=== PATIENT | male | born 1990 | race Caucasian/White ===

== ENCOUNTER 2016-06-14 03:07 | Emergency (ER) | payer MEDICARE ==
[~2016-06-14] VITALS: Ht 172.7 cm; Wt 81.6 kg
[~2016-06-14 03:07] MED LIST: ALBUTEROL0.09 MG/A2 IH; ALBUTEROL0.09 MG/A2 INH; ANAPROX DS550 MG PO; ANTIBIOTIC O500 U/GM TP; AUGMENTIN 875875 MG PO; AVELOX400 MG PO; BACTRIM DS 8001 TA1 PO; BENADRYL ALLERG25 M5 PO; BIAXIN250 MG/51 PO; BIPAP; CEPHALEXIN500 M1 PO; CIPROFLOXACIN500 MG PO; CLARITIN10 MG PO; CLARITIN5 MG/5 ML PO; COMPAZINE10 MG PO; CORDROL20 MG PO; CYCLOBENZAPRINE5 M3 PO; DAYPRO600 M1; DAYPRO600 M1 PO; DOXYCYCLINE MO100 MG PO; FLAGYL500 MG PO; FLEXERIL10 MG PO; FLEXERIL5 MG PO; HYDROCODONE BIT1 T11 PO; IBU800 MG PO; K-TAB10 MEQ PO; KEFLEX500 M1 PO; LIDEX0.05% T; MEDROL DOSEPAK4 MG PO; MOTRIN600 MG PO; MOTRIN800 MG PO; Motrin,Rufen800 MG PO; NAPROSYN500 MG PO; NKHM; PHENERGAN25 M1 PO; PREDNICOT20 MG PO; PREDNISONE10 MG PO; PRELONE15 MG/5 ML PO; PREVACID SOLUTA30 MG PO; ROBAXIN750 MG PO; SUDAFED60 M1 PO; TRAMADOL HCL50 MG PO; ULTRAM50 MG; VIBRAMYCIN100 MG PO; VICODIN 5-3001 EACH PO; VICODIN 5/500 505 MG PO; VOLTAREN75 MG PO; ZANTAC 150150 MG PO; ZITHROMAX Z PA250 MG PO; ZOFRAN4 MG PO; ZOFRAN4 MG/5 ML PO; Zithromax200 MG/5 M PO; [UNRECOGNIZED DRUG - SUPPLY]
[2016-06-14 03:16] VITALS: BP 147/84
[2016-06-14 04:03] LABS: BASO # 0.1 10*3/uL (0.0-0.1); BASO % 0.6 % (0.0-1.0); EOS # 0.3 10*3/uL (0.0-0.4); EOS % 3.6 % (1.0-4.0); HEMATOCRIT 43.2 % (42.0-52.0); HEMOGLOBIN 14.7 g/dl (14.0-18.0); LYMPH # 2.9 10*3/uL (1.3-4.4); LYMPH % 32.9 % (27.0-41.0); MEAN CELL VOLUME 81.4 fl (80.0-94.0); MEAN CORPUSCULAR HGB 27.7 pg (27.0-31.0); MEAN PLATELET VOLUME 9.3 fl (9.6-12.3); MONO % 11.3 % (3.0-9.0); NEUT # 4.6 10*3/uL (2.3-7.9); NEUT % 51.3 % (47.0-73.0); PLATELET COUNT AUTOMATED 232 10*3/uL (130-400); RED BLOOD COUNT 5.31 10*6/uL (4.50-5.90); RED CELL DISTRI WIDTH 13.1 % (0-14.5); WHITE BLOOD COUNT 8.9 10*3/uL (4.8-10.8)
[2016-06-14 04:21] LABS: BILIRUBIN 1+ (NEGATIVE); BLOOD NEGATIVE (NEGATIVE); CLARITY SL CLOUDY (CLEAR); COLOR YELLOW (YELLOW); GLUCOSE NEGATIVE (NEGATIVE); KETONE TRACE (NEGATIVE); LEUKO ESTERASE NEGATIVE (NEGATIVE); NITRITE NEGATIVE (NEGATIVE); PH 5.5 (5.0-9.0); PROTEIN TRACE (NEGATIVE); SPECIFIC GRAVITY >= 1.030 (1.005-1.030)
[2016-06-14 04:21] LABS: BUN 10 mg/dl (7-24); C-REACTIVE PROTEIN 0.82 MG/DL (0-0.3); CARBON DIOXIDE 25 mmol/L (21-32); CHLORIDE 107 mmol/L (98-107); EST GLOM FILT AFRICAN AMERICAN > 60 ml/min; GLUCOSE 105 mg/dL (65-99); POTASSIUM 3.7 mmol/L (3.5-5.1); SODIUM 143 mmol/L (136-145)
[2016-06-14 04:31] LABS: BACTERIA 1+; URINE REFLEX COMMENT NO (NO)
[2016-06-14] MEDS ORDERED: AMOXICILLIN,AM250 MG PO (04:45)
[2016-06-14] MEDS ORDERED: MOTRIN CHI100 MG/51 PO (04:45)
[2016-06-14] MEDS ORDERED: LOMOTIL 60ML 6060 ML PO (04:47)
[2016-06-29] MEDS ORDERED: ZOFRAN ODT4 MG SL (21:31)
== END 2016-06-14 05:23 | disposition home or self-care (01) ==
LOC: ED 03:07
PROVIDERS: Emergency Medicine Emergency Medical Services
DX: K52.9 Noninfective gastroenteritis and colitis, unspecified (principal); J02.9 Acute pharyngitis, unspecified; F17.200 Nicotine dependence, unspecified, uncomplicated

== ENCOUNTER 2016-08-17 11:35 | Emergency (ER) | payer MEDICARE ==
[~2016-08-17] VITALS: Ht 172.7 cm; Wt 81.6 kg
[2016-08-17 12:09] VITALS: BP 130/70
[2016-08-17 12:32] LABS: BASO % 0.4 % (0.0-1.0); EOS # 0.3 10*3/uL (0.0-0.4); EOS % 2.8 % (1.0-4.0); HEMATOCRIT 43.4 % (42.0-52.0); HEMOGLOBIN 14.9 g/dl (14.0-18.0); LYMPH # 3.3 10*3/uL (1.3-4.4); LYMPH % 32.5 % (27.0-41.0); MEAN CELL VOLUME 80.8 fl (80.0-94.0); MEAN CORPUSCULAR HGB 27.7 pg (27.0-31.0); MEAN CORPUSCULAR HGB CONC 34.3 g/dl (33.0-37.0); MEAN PLATELET VOLUME 9.3 fl (9.6-12.3); MONO # 0.8 10*3/uL (0.1-1.0); MONO % 7.4 % (3.0-9.0); NEUT # 5.8 10*3/uL (2.3-7.9); NEUT % 56.7 % (47.0-73.0); PLATELET COUNT AUTOMATED 295 10*3/uL (130-400); RED BLOOD COUNT 5.37 10*6/uL (4.50-5.90); RED CELL DISTRI WIDTH 13.1 % (0-14.5); WHITE BLOOD COUNT 10.3 10*3/uL (4.8-10.8)
[2016-08-17 12:34] LABS: BILIRUBIN NEGATIVE (NEGATIVE); BLOOD NEGATIVE (NEGATIVE); CLARITY SL CLOUDY (CLEAR); COLOR YELLOW (YELLOW); GLUCOSE NEGATIVE (NEGATIVE); KETONE NEGATIVE (NEGATIVE); LEUKO ESTERASE NEGATIVE (NEGATIVE); NITRITE NEGATIVE (NEGATIVE); PROTEIN NEGATIVE (NEGATIVE)
[2016-08-17 12:40] LABS: BACTERIA 1+; URINE REFLEX COMMENT NO (NO)
[2016-08-17 12:42] LABS: URINE AMPHETAMINES < 1000 (1000ng/ml); URINE BARBITURATES < 200 (200ng/ml); URINE COCAINE < 300 (300ng/ml)
[2016-08-17 12:54] LABS: ALBUMIN 3.9 gm/dl (3.1-4.5); ALKALINE PHOSPHATASE 94 U/L (45-117); BILIRUBIN, TOTAL 0.3 mg/dl (0.2-1.0); BUN 8 mg/dl (7-24); CARBON DIOXIDE 26 mmol/L (21-32); CHLORIDE 106 mmol/L (98-107); EST GLOM FILT AFRICAN AMERICAN > 60 ml/min; GLUCOSE 110 mg/dL (65-99); POTASSIUM 4.2 mmol/L (3.5-5.1); SGOT/AST 13 IU/L (3-35); SGPT/ALT 25 U/L (12-78); SODIUM 140 mmol/L (136-145); TOTAL PROTEIN 7.2 gm/dL (6.4-8.2)
== END 2016-08-17 14:48 | disposition home or self-care (01) ==
LOC: ED 11:35
PROVIDERS: Nurse Practitioner Family
DX: R53.83 Other fatigue (principal); R03.0 Elevated blood-pressure reading, without diagnosis of hypertension; F17.200 Nicotine dependence, unspecified, uncomplicated; Z88.1 Allergy status to other antibiotic agents

== ENCOUNTER → 2016-08-17 | Outpatient (CLI) | payer MEDICARE ==
[~2016-08-17] MED LIST changes: +AMOXICILLIN,AM250 MG PO; +LOMOTIL 60ML 6060 ML PO; +MOTRIN CHI100 MG/51 PO; +ZOFRAN ODT4 MG SL
== END | disposition home or self-care (01) ==
LOC: RESCLI 02:44
DX: K82.4 Cholesterolosis of gallbladder (principal); F33.9 Major depressive disorder, recurrent, unspecified; R10.84 Generalized abdominal pain

== ENCOUNTER 2016-09-14 11:03 | Emergency (ER) | payer MEDICARE ==
[~2016-09-14] VITALS: Wt 83.0 kg
[2016-09-14 11:08] VITALS: BP 122/84
[2016-09-14] MEDS ORDERED: PRILOSEC20 M1 PO (11:10)
[2016-09-14] MEDS ORDERED: LISINOPRIL2.5 MG PO (11:10)
[2016-09-14 11:33] LABS: BILIRUBIN NEGATIVE (NEGATIVE); BLOOD NEGATIVE (NEGATIVE); CLARITY CLEAR (CLEAR); COLOR YELLOW (YELLOW); GLUCOSE NEGATIVE (NEGATIVE); KETONE NEGATIVE (NEGATIVE); LEUKO ESTERASE NEGATIVE (NEGATIVE); NITRITE NEGATIVE (NEGATIVE); PROTEIN NEGATIVE (NEGATIVE); UROBILINOGEN 0.2 E.U./dl (0.2-1.0)
[2016-09-14 11:39] LABS: BASO # 0.1 10*3/uL (0.0-0.1); BASO % 0.6 % (0.0-1.0); EOS # 0.3 10*3/uL (0.0-0.4); EOS % 2.9 % (1.0-4.0); HEMATOCRIT 44.9 % (42.0-52.0); HEMOGLOBIN 15.1 g/dl (14.0-18.0); LYMPH # 3.4 10*3/uL (1.3-4.4); LYMPH % 37.8 % (27.0-41.0); MEAN CELL VOLUME 81.2 fl (80.0-94.0); MEAN CORPUSCULAR HGB 27.3 pg (27.0-31.0); MEAN CORPUSCULAR HGB CONC 33.6 g/dl (33.0-37.0); MEAN PLATELET VOLUME 9.6 fl (9.6-12.3); MONO # 0.7 10*3/uL (0.1-1.0); MONO % 8.1 % (3.0-9.0); NEUT # 4.5 10*3/uL (2.3-7.9); NEUT % 50.4 % (47.0-73.0); PLATELET COUNT AUTOMATED 320 10*3/uL (130-400); RED BLOOD COUNT 5.53 10*6/uL (4.50-5.90); RED CELL DISTRI WIDTH 12.8 % (0-14.5)
[2016-09-14 11:40] LABS: URINE REFLEX COMMENT NO (NO)
[2016-09-14 11:55] LABS: ALBUMIN 4.1 gm/dl (3.1-4.5); ALKALINE PHOSPHATASE 99 U/L (45-117); BILIRUBIN, TOTAL 0.4 mg/dl (0.2-1.0); BUN 10 mg/dl (7-24); CARBON DIOXIDE 23 mmol/L (21-32); CHLORIDE 107 mmol/L (98-107); EST GLOM FILT AFRICAN AMERICAN > 60 ml/min; GLUCOSE 86 mg/dL (65-99); SGOT/AST 18 IU/L (3-35); SGPT/ALT 28 U/L (12-78); SODIUM 142 mmol/L (136-145); TOTAL PROTEIN 7.5 gm/dL (6.4-8.2)
[2016-09-14] MEDS ORDERED: NAPROSYN500 MG PO (13:45)
[2016-09-14] MEDS ORDERED: ZOFRAN ODT4 MG SL (13:45)
== END 2016-09-14 13:54 | disposition home or self-care (01) ==
LOC: ED 11:03
PROVIDERS: Nurse Practitioner Family
DX: R10.30 Lower abdominal pain, unspecified (principal); F17.200 Nicotine dependence, unspecified, uncomplicated; Z88.1 Allergy status to other antibiotic agents; Z79.899 Other long term (current) drug therapy

== ENCOUNTER → 2016-09-23 | Outpatient (CLI) | payer MEDICARE ==
[~2016-09-23] MED LIST changes: +CEFDINIR250 MG/5 M PO; +CEFDINIR300 MG PO; +LISINOPRIL2.5 MG PO; +PREDNISONE20 M1 PO; +PRILOSEC20 M1 PO; +PSEUDOEPHEDRINE60 MG PO; +TESSALON PERLE100 MG PO
== END | disposition home or self-care (01) ==
LOC: NM 02:02
DX: R10.11 Right upper quadrant pain (principal); R11.2 Nausea with vomiting, unspecified

== ENCOUNTER 2016-09-27 20:01 | Emergency (ER) | payer MEDICARE ==
[~2016-09-27] VITALS: Ht 172.7 cm; Wt 79.4 kg
[~2016-09-27 20:01] MED LIST changes: -CEFDINIR250 MG/5 M PO; -CEFDINIR300 MG PO; -PREDNISONE20 M1 PO; -PSEUDOEPHEDRINE60 MG PO; -TESSALON PERLE100 MG PO
[2016-09-27 20:29] VITALS: BP 154/74
[2016-09-27] MEDS ORDERED: TESSALON PERLE100 MG PO (21:18)
[2016-09-27] MEDS ORDERED: CEFDINIR300 MG PO (21:18)
[2016-09-27] MEDS ORDERED: PSEUDOEPHEDRINE60 MG PO (21:18)
[2016-09-27] MEDS ORDERED: PREDNISONE20 M1 PO (21:18)
[2016-09-27] MEDS ORDERED: CEFDINIR250 MG/5 M PO (21:27)
== END 2016-09-27 21:33 | disposition home or self-care (01) ==
LOC: ED 20:01
DX: J01.00 Acute maxillary sinusitis, unspecified (principal); J20.9 Acute bronchitis, unspecified; F17.200 Nicotine dependence, unspecified, uncomplicated; Z88.1 Allergy status to other antibiotic agents

== ENCOUNTER → 2016-09-28 | Outpatient (CLI) | payer MEDICARE ==
[~2016-09-28] MED LIST changes: +CEFDINIR250 MG/5 M PO; +CEFDINIR300 MG PO; +PREDNISONE20 M1 PO; +PSEUDOEPHEDRINE60 MG PO; +TESSALON PERLE100 MG PO
== END | disposition home or self-care (01) ==
LOC: RESCLI 03:45
DX: I10 Essential (primary) hypertension (principal); K58.0 Irritable bowel syndrome with diarrhea; A04.8 Other specified bacterial intestinal infections; F60.3 Borderline personality disorder; J40 Bronchitis, not specified as acute or chronic

== ENCOUNTER 2016-11-28 19:24 | Emergency (ER) | payer MEDICARE ==
[~2016-11-28] VITALS: Ht 172.7 cm; Wt 81.6 kg
[2016-11-28 19:36] VITALS: BP 153/94
== END 2016-11-28 19:52 | disposition home or self-care (01) ==
LOC: ED 19:24
DX: T22.142A Burn of first degree of left axilla, initial encounter (principal); F17.200 Nicotine dependence, unspecified, uncomplicated; X16.XXXA Contact with hot heating appliances, radiators and pipes, initial encounter; Y93.89 Activity, other specified; Y92.89 Other specified places as the place of occurrence of the external cause; Y99.8 Other external cause status; Z88.1 Allergy status to other antibiotic agents

== ENCOUNTER 2016-12-08 09:27 | Inpatient (IN) | payer MEDICARE ==
[~2016-12-08] VITALS: Ht 172.7 cm; Wt 87.1 kg
--- NOTE | ~2016-12-08 | CON ---
[place], [place] REPORT OF CONSULTATION [id number] UNIT #: [id number] ROOM: 511 DOCTOR: DONAVAN ALANIS MD BIRTHDATE: [birth year] DOS: HISTORY OF PRESENT ILLNESS: This is a 26-year-old young man, who is on social security benefit for explosive personality. He tells me he just snaps and cannot control himself. He has essential hypertension and apparently, blood pressure has not been well controlled. He has never had a heart attack, heart failure, stroke, any COPD, has GERD, but no peptic ulcer disease. He has not had any kidney problems that he knows of. His father was in his 30s when he had several heart attacks and had a couple of strokes. He in his early 40s. His paternal grandparents are still alive. ____ smokes one pack of cigarettes per day. 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 He was feeling fine yesterday, was just sitting, had a rather sharp lightning pain that started from the left upper part of the chest that radiated up into the neck. The feeling was as if somebody shot electricity into him and it only lasted for a few seconds. It had happened repeatedly, but there is no heaviness, pressure, no persistent discomfort. He had no palpitations, dizziness, or breathing difficulty. He had mild nausea. He did not pass out. Previously, when he has been running around coaching the baseball team, he has not had any cardiac symptoms whatsoever. HOME MEDICATIONS: He is on lisinopril 2.5 mg daily. ALLERGIES: AMOXICILLIN, which causes hives. PHYSICAL EXAMINATION: GENERAL: This reveals a patient, who is muscular, short. He is alert and oriented. Complexion is fine. There is no anemia or jaundice. VITAL SIGNS: Pulse is regular at 72 beats per minute, blood pressure 134/77. NECK: JVP is normal, no bruit in the neck. HEART: There is no cardiomegaly. No murmurs are present. EXTREMITIES: There is no edema in the lower extremities. Pedal pulses are excellent. RESPIRATORY: There is no chest wall tenderness and percussion is normal. Auscultation with excellent breath sounds. There is no rub or other adventitious sounds. ABDOMEN: Supple, nontender. No bruits or pulsatile mass. LABORATORY DATA: An ECG showed normal sinus rhythm and a normal pattern. Troponin I level was also normal. Total cholesterol 184, HDL 41, LDL 112, and triglyceride was also normal. IMPRESSION: This young man had some sharp lightening-like pain, which has not occurred. He has never had any symptoms with exertion. I do not feel that this symptom is from coronary arteries problems. I do not recommend any further workup. I discussed with him the need to quit smoking particularly with his father having had coronary artery disease, heart attacks, and strokes in his 30s. [place], [place] REPORT OF CONSULTATION NAME: BARRON CANCHOLA II UNIT #: [id number] ROOM: 511 DOCTOR: DONAVAN ALANIS MD BIRTHDATE: [birth year] He claims he has hypertension. Blood pressure has been under good control. He claims the blood pressure is high in his doctor's office. From cardiac standpoint, he may be discharged home. I thank you on behalf of Dr. Barton for this consult. DONAVAN ALANIS MD CM:CONSTR:REPORT OF CONSULTATION 1218 [id number] interface KENDRA BARTON MD
[2016-12-08 09:34] VITALS: BP 152/88
[2016-12-08 09:49] LABS: BASO # 0.1 10*3/uL (0.0-0.1); BASO % 0.6 % (0.0-1.0); EOS # 0.4 10*3/uL (0.0-0.4); HEMATOCRIT 44.5 % (42.0-52.0); HEMOGLOBIN 14.8 g/dl (14.0-18.0); LYMPH # 3.6 10*3/uL (1.3-4.4); LYMPH % 31.7 % (27.0-41.0); MEAN CORPUSCULAR HGB 27.3 pg (27.0-31.0); MEAN CORPUSCULAR HGB CONC 33.3 g/dl (33.0-37.0); MEAN PLATELET VOLUME 9.2 fl (9.6-12.3); MONO # 0.8 10*3/uL (0.1-1.0); MONO % 6.6 % (3.0-9.0); NEUT # 6.6 10*3/uL (2.3-7.9); NEUT % 57.8 % (47.0-73.0); PLATELET COUNT AUTOMATED 292 10*3/uL (130-400); RED BLOOD COUNT 5.43 10*6/uL (4.50-5.90); RED CELL DISTRI WIDTH 13.2 % (0-14.5); WHITE BLOOD COUNT 11.5 10*3/uL (4.8-10.8)
[2016-12-08 09:58] LABS: INTERNATIONAL NORM RATIO 0.9 (2.0-3.5)
[2016-12-08 10:09] LABS: ALBUMIN 3.7 gm/dl (3.1-4.5); ALKALINE PHOSPHATASE 103 U/L (45-117); BILIRUBIN, TOTAL 0.2 mg/dl (0.2-1.0); BUN 5 mg/dl (7-24); CARBON DIOXIDE 29 mmol/L (21-32); CHLORIDE 106 mmol/L (98-107); EST GLOM FILT AFRICAN AMERICAN > 60 ml/min; GLUCOSE 91 mg/dL (65-99); MAGNESIUM 2.3 mg/dL (1.5-2.1); POTASSIUM 4.1 mmol/L (3.5-5.1); SGOT/AST 18 IU/L (3-35); SGPT/ALT 36 U/L (12-78); SODIUM 143 mmol/L (136-145); TOTAL PROTEIN 7.1 gm/dL (6.4-8.2)
[2016-12-08 10:11] LABS: TROPONIN I < 0.015 ng/ml (<0.045)
[2016-12-08 12:00] VITALS: BP 136/80
[2016-12-08] MEDS ORDERED: LISINOPRIL2.5 MG PO (12:12)
[2016-12-08 16:00] VITALS: BP 116/63
[2016-12-08 20:00] VITALS: BP 120/73
[2016-12-09] VITALS: BP 125/70
[2016-12-09 06:44] LABS: BASO # 0.1 10*3/uL (0.0-0.1); BASO % 0.5 % (0.0-1.0); EOS # 0.3 10*3/uL (0.0-0.4); EOS % 3.5 % (1.0-4.0); HEMATOCRIT 42.5 % (42.0-52.0); HEMOGLOBIN 14.3 g/dl (14.0-18.0); IG # 0.1 10*3/uL (0.0-0.1); LYMPH % 41.2 % (27.0-41.0); MEAN CELL VOLUME 82.2 fl (80.0-94.0); MEAN CORPUSCULAR HGB 27.7 pg (27.0-31.0); MEAN CORPUSCULAR HGB CONC 33.6 g/dl (33.0-37.0); MEAN PLATELET VOLUME 9.4 fl (9.6-12.3); MONO # 0.7 10*3/uL (0.1-1.0); MONO % 6.8 % (3.0-9.0); NEUT # 4.6 10*3/uL (2.3-7.9); NEUT % 47.5 % (47.0-73.0); PLATELET COUNT AUTOMATED 279 10*3/uL (130-400); RED BLOOD COUNT 5.17 10*6/uL (4.50-5.90); RED CELL DISTRI WIDTH 13.2 % (0-14.5); WHITE BLOOD COUNT 9.7 10*3/uL (4.8-10.8)
[2016-12-09 06:59] LABS: HEMOGLOBIN A1c 5.4 % (4.8-5.6)
[2016-12-09 07:17] LABS: ALBUMIN 3.2 gm/dl (3.1-4.5); ALKALINE PHOSPHATASE 83 U/L (45-117); BILIRUBIN, TOTAL 0.2 mg/dl (0.2-1.0); BUN 8 mg/dl (7-24); CARBON DIOXIDE 23 mmol/L (21-32); CHLORIDE 108 mmol/L (98-107); CHOLESTEROL 184 mg/dL (<200); EST GLOM FILT AFRICAN AMERICAN > 60 ml/min; GLUCOSE 92 mg/dL (65-99); HDL CHOLESTEROL 41 mg/dl (40-60); LDL CHOLESTEROL 119 mg/dL (9-159); MAGNESIUM 2.1 mg/dL (1.5-2.1); PHOSPHOROUS 3.7 mg/dL (2.5-4.9); SGOT/AST 17 IU/L (3-35); SGPT/ALT 31 U/L (12-78); SODIUM 141 mmol/L (136-145); TOTAL PROTEIN 6.1 gm/dL (6.4-8.2); TRIGLYCERIDES 118 mg/dl (<150); VLDL CHOLESTEROL 24 mg/dL (6-40)
[2016-12-09 07:22] LABS: PROTHROMBIN TIME 10.1 SECONDS (9.0-12.4)
[2016-12-09 07:36] LABS: FOLIC ACID 3.15 ng/mL (>5.38); VITAMIN D, 25-HYDROXY 28.8 ng/mL (30-100)
[2016-12-09 08:00] VITALS: BP 134/77
[2016-12-09 12:00] VITALS: BP 114/58
[2016-12-09] MEDS ORDERED: ASPIRIN ADULT L81 M2 PO (13:00)
== END 2016-12-09 13:50 | disposition home or self-care (01) | DRG 313 ==
LOC: EDSTATUS 09:27 → ED 09:28 → 5E 10:29 → EDHOLD 10:29 → 5E 10:40
PROVIDERS: Internal Medicine; Student in an Organized Health Care Education/Training Program
DX: R07.2 Precordial pain (principal); N17.0 Acute kidney failure with tubular necrosis; E83.41 Hypermagnesemia; Z83.3 Family history of diabetes mellitus; Z82.49 Family history of ischemic heart disease and other diseases of the circulatory system; Z88.1 Allergy status to other antibiotic agents; F17.210 Nicotine dependence, cigarettes, uncomplicated; I10 Essential (primary) hypertension

== ENCOUNTER → 2016-12-15 | Outpatient (CLI) | payer MEDICARE ==
[~2016-12-15] MED LIST changes: +ASPIRIN ADULT L81 M2 PO
== END | disposition home or self-care (01) ==
LOC: RESCLI 02:36 → LAB 02:36 → RESCLI 12:31
DX: R53.83 Other fatigue (principal)

== ENCOUNTER → 2016-12-20 | Outpatient (CLI) | payer MEDICARE | END | disposition home or self-care (01) | LOC: RESCLI 12:56 | DX: G47.30 Sleep apnea, unspecified (principal); F60.3 Borderline personality disorder; E53.8 Deficiency of other specified B group vitamins; E55.9 Vitamin D deficiency, unspecified; E66.09 Other obesity due to excess calories; Z71.6 Tobacco abuse counseling; Z72.0 Tobacco use; Z68.30 Body mass index [BMI] 30.0-30.9, adult ==

== ENCOUNTER 2016-12-29 08:23 | Emergency (ER) | payer MEDICARE ==
[~2016-12-29] VITALS: Ht 172.7 cm; Wt 81.6 kg
[2016-12-29 08:50] LABS: BASO # 0.1 10*3/uL (0.0-0.1); BASO % 0.4 % (0.0-1.0); EOS # 0.3 10*3/uL (0.0-0.4); EOS % 2.7 % (1.0-4.0); HEMATOCRIT 45.3 % (42.0-52.0); HEMOGLOBIN 15.4 g/dl (14.0-18.0); LYMPH # 4.6 10*3/uL (1.3-4.4); LYMPH % 38.9 % (27.0-41.0); MEAN CELL VOLUME 79.8 fl (80.0-94.0); MEAN CORPUSCULAR HGB 27.1 pg (27.0-31.0); MEAN PLATELET VOLUME 9.3 fl (9.6-12.3); MONO % 8.5 % (3.0-9.0); NEUT # 5.9 10*3/uL (2.3-7.9); NEUT % 49.2 % (47.0-73.0); PLATELET COUNT AUTOMATED 317 10*3/uL (130-400); RED BLOOD COUNT 5.68 10*6/uL (4.50-5.90); RED CELL DISTRI WIDTH 13.3 % (0-14.5); WHITE BLOOD COUNT 11.9 10*3/uL (4.8-10.8)
[2016-12-29 08:59] LABS: INTERNATIONAL NORM RATIO 0.9 (2.0-3.5); PROTHROMBIN TIME 9.7 SECONDS (9.0-12.4)
[2016-12-29 09:05] LABS: BUN 9 mg/dl (7-24); CARBON DIOXIDE 24 mmol/L (21-32); CHLORIDE 106 mmol/L (98-107); EST GLOM FILT AFRICAN AMERICAN > 60 ml/min; GLUCOSE 121 mg/dL (65-99); MAGNESIUM 2.2 mg/dL (1.5-2.1); POTASSIUM 3.7 mmol/L (3.5-5.1); SODIUM 138 mmol/L (136-145)
[2016-12-29 09:09] LABS: TROPONIN I < 0.015 ng/ml (<0.045)
[2016-12-29 10:11] LABS: URINE AMPHETAMINES < 1000 (1000ng/ml); URINE BARBITURATES < 200 (200ng/ml); URINE COCAINE < 300 (300ng/ml)
[2016-12-29 21:35] LABS: HEMATOCRIT 44.8 % (42.0-52.0); HEMOGLOBIN 15.1 g/dl (14.0-18.0); MEAN CELL VOLUME 81.5 fl (80.0-94.0); MEAN CORPUSCULAR HGB 27.5 pg (27.0-31.0); MEAN CORPUSCULAR HGB CONC 33.7 g/dl (33.0-37.0); MEAN PLATELET VOLUME 9.2 fl (9.6-12.3); PLATELET COUNT AUTOMATED 306 10*3/uL (130-400); RED CELL DISTRI WIDTH 13.3 % (0-14.5); WHITE BLOOD COUNT 12.9 10*3/uL (4.8-10.8)
[2016-12-29 21:41] VITALS: BP 144/90
[2016-12-29 21:52] LABS: URINE AMPHETAMINES < 1000 (1000ng/ml); URINE BARBITURATES < 200 (200ng/ml); URINE COCAINE < 300 (300ng/ml)
[2016-12-29 21:54] LABS: BUN 14 mg/dl (7-24); CARBON DIOXIDE 25 mmol/L (21-32); CHLORIDE 106 mmol/L (98-107); EST GLOM FILT AFRICAN AMERICAN > 60 ml/min; GLUCOSE 105 mg/dL (65-99); POTASSIUM 3.6 mmol/L (3.5-5.1); SODIUM 138 mmol/L (136-145)
[2016-12-29 21:58] LABS: TROPONIN I < 0.015 ng/ml (<0.045)
[2016-12-29] MEDS ORDERED: ANAPROX DS550 MG PO (22:02)
[2016-12-29 22:03] LABS: EOSINOPHIL # 0.3 10*3/uL (0-0.4); EOSINOPHILS 2 % (1-4); LYMPHOCYTE # 6.3 10*3/uL (1.3-4.4); MONOCYTE # 0.5 10*3/uL (0.1-1.0); NEUTROPHIL # 5.8 10*3/uL (2.3-7.9); NEUTROPHILS 45 % (47-73); PLATELET SUFFICIENCY NORMAL (NORMAL); TOTAL CELLS COUNTED 100 #CELLS
== END 2016-12-29 22:47 | disposition home or self-care (01) ==
LOC: ED 08:23
PROVIDERS: Emergency Medicine; Emergency Medicine Emergency Medical Services
DX: R42 Dizziness and giddiness (principal); R53.1 Weakness; R11.2 Nausea with vomiting, unspecified; F17.210 Nicotine dependence, cigarettes, uncomplicated; I10 Essential (primary) hypertension; R07.9 Chest pain, unspecified; R06.02 Shortness of breath; R61 Generalized hyperhidrosis; Z88.1 Allergy status to other antibiotic agents; Z79.899 Other long term (current) drug therapy

== ENCOUNTER → 2017-01-12 | Outpatient (CLI) | payer MEDICARE | END | disposition home or self-care (01) | LOC: RESCLI 03:02 | DX: K21.9 Gastro-esophageal reflux disease without esophagitis (principal); E55.9 Vitamin D deficiency, unspecified; E53.8 Deficiency of other specified B group vitamins; G47.30 Sleep apnea, unspecified; R53.82 Chronic fatigue, unspecified; J45.909 Unspecified asthma, uncomplicated; F17.200 Nicotine dependence, unspecified, uncomplicated; Z91.19 Patient's noncompliance with other medical treatment and regimen; Z88.1 Allergy status to other antibiotic agents ==

== ENCOUNTER → 2017-01-26 | Outpatient (CLI) | payer MEDICARE | END | disposition home or self-care (01) | LOC: RESCLI 01:30 | DX: I10 Essential (primary) hypertension (principal); R07.89 Other chest pain; G47.33 Obstructive sleep apnea (adult) (pediatric); E53.8 Deficiency of other specified B group vitamins; E55.9 Vitamin D deficiency, unspecified; R53.82 Chronic fatigue, unspecified; K21.9 Gastro-esophageal reflux disease without esophagitis; E66.3 Overweight; F17.200 Nicotine dependence, unspecified, uncomplicated; Z91.19 Patient's noncompliance with other medical treatment and regimen ==

== ENCOUNTER → 2017-02-08 | Outpatient (CLI) | payer MEDICARE ==
[~2017-02-08] MED LIST changes: +B12; +CYCLOBENZAPRINE10 MG PO; +FOLIC ACID; +VIT D
--- NOTE | 2017-02-08 10:00 | NUR ---
INFORMED CONSENT OBTAINED FOR STANDARD GXT WITH DR. HENDRIX. RESTING EKG NSR WITH A SUPINE HR OF 73 WITH BP OF 128/74 AND HR OF 84 WITH BP OF 120/80 IN STANDING POSITION. PT COMPLETED 10:16 OF A BERTO PROTOCOL WITH COMPLETION OF 1:16 OF STAGE IV AT 4.2 MPH AND 16% GRADE. REACHED A PEAK HR OF 168 WHICH IS 87% OF PREDICTED MAX WITH A PEAK BP OF 190/100. TEST TERMINATED BECAUSE OF FATIGUE. HAD NO CHEST PAIN OR ANY EKG CHANGES. NEGATIVE STANDARD GXT AT 87% OF PMHR. HAS AN AVERAGE EXERCISE TOLERANCE. LAST RECOVERY HR OF 104 WITH BP OF 148/88. DISCHARGED IN STABLE CONDITION.
== END | disposition home or self-care (01) ==
LOC: CANPRECLI → CARD 01:54
DX: R07.89 Other chest pain (principal)

== ENCOUNTER 2017-02-12 11:35 | Emergency (ER) | payer MEDICARE ==
[~2017-02-12 11:35] MED LIST changes: -CYCLOBENZAPRINE10 MG PO
[2017-02-12 11:41] VITALS: BP 152/90
[2017-02-12] MEDS ORDERED: Motrin,Rufen800 MG PO (14:14)
== END 2017-02-12 14:43 | disposition home or self-care (01) ==
LOC: ED 11:35
DX: S05.12XA Contusion of eyeball and orbital tissues, left eye, initial encounter (principal); F12.10 Cannabis abuse, uncomplicated; F17.200 Nicotine dependence, unspecified, uncomplicated; Z88.1 Allergy status to other antibiotic agents; Z79.899 Other long term (current) drug therapy; W22.8XXA Striking against or struck by other objects, initial encounter; Y93.89 Activity, other specified; Y92.89 Other specified places as the place of occurrence of the external cause; Y99.8 Other external cause status

== ENCOUNTER → 2017-02-16 | Outpatient (CLI) | payer MEDICARE | END | disposition home or self-care (01) | LOC: RESCLI 02:23 | DX: I10 Essential (primary) hypertension (principal); R07.9 Chest pain, unspecified; G47.30 Sleep apnea, unspecified; R53.82 Chronic fatigue, unspecified; E66.3 Overweight; K21.9 Gastro-esophageal reflux disease without esophagitis; F19.90 Other psychoactive substance use, unspecified, uncomplicated; Z71.6 Tobacco abuse counseling; Z72.0 Tobacco use; Z91.19 Patient's noncompliance with other medical treatment and regimen ==

== ENCOUNTER 2017-03-14 11:44 | Emergency (ER) | payer MEDICARE ==
[~2017-03-14] VITALS: Ht 172.7 cm; Wt 88.5 kg
[2017-03-14 11:51] VITALS: BP 156/82
[2017-03-14] MEDS ORDERED: NAPROSYN500 MG PO (13:37)
[2017-03-14] MEDS ORDERED: CYCLOBENZAPRINE10 MG PO (13:37)
[2017-03-14] MEDS ORDERED: MEDROL DOSEPAK4 MG PO (13:37)
== END 2017-03-14 14:00 | disposition home or self-care (01) ==
LOC: ED 11:44
DX: M54.41 Lumbago with sciatica, right side (principal); F17.200 Nicotine dependence, unspecified, uncomplicated; Z79.899 Other long term (current) drug therapy; Z79.82 Long term (current) use of aspirin; Z88.1 Allergy status to other antibiotic agents; X50.0XXA Overexertion from strenuous movement or load, initial encounter; Y93.89 Activity, other specified; Y92.89 Other specified places as the place of occurrence of the external cause; Y99.9 Unspecified external cause status

== ENCOUNTER → 2017-03-15 | Outpatient (CLI) | payer MEDICARE ==
[~2017-03-15] MED LIST changes: +CYCLOBENZAPRINE10 MG PO
== END | disposition home or self-care (01) ==
LOC: RESCLI
DX: S39.92XD Unspecified injury of lower back, subsequent encounter (principal); E66.3 Overweight; J45.909 Unspecified asthma, uncomplicated; M99.05 Segmental and somatic dysfunction of pelvic region; Z72.0 Tobacco use; Z88.1 Allergy status to other antibiotic agents; X58.XXXD Exposure to other specified factors, subsequent encounter

== ENCOUNTER 2017-05-08 12:48 | Emergency (ER) | payer MEDICARE ==
[~2017-05-08] VITALS: Ht 172.7 cm; Wt 86.2 kg
[2017-05-08 12:58] VITALS: BP 137/86
[2017-05-08] MEDS ORDERED: PREDNISONE10 MG PO (13:24)
== END 2017-05-08 14:14 | disposition home or self-care (01) ==
LOC: ED 12:48
DX: R21 Rash and other nonspecific skin eruption (principal); F17.200 Nicotine dependence, unspecified, uncomplicated; Z79.899 Other long term (current) drug therapy; Z79.82 Long term (current) use of aspirin; Z88.1 Allergy status to other antibiotic agents

== ENCOUNTER → 2017-05-10 | Outpatient (CLI) | payer MEDICARE | END | disposition home or self-care (01) | LOC: RESCLI 02:13 | DX: J20.9 Acute bronchitis, unspecified (principal); J11.1 Influenza due to unidentified influenza virus with other respiratory manifestations; R03.0 Elevated blood-pressure reading, without diagnosis of hypertension; F32.9 Major depressive disorder, single episode, unspecified; K21.9 Gastro-esophageal reflux disease without esophagitis; J45.909 Unspecified asthma, uncomplicated; E66.3 Overweight; Z72.0 Tobacco use ==

== ENCOUNTER 2017-06-15 11:30 | Emergency (ER) | payer MEDICARE ==
[~2017-06-15] VITALS: Ht 172.7 cm; Wt 86.2 kg
[2017-06-15 11:58] LABS: BASO # 0.1 10*3/uL (0.0-0.1); BASO % 0.4 % (0.0-1.0); EOS # 0.3 10*3/uL (0.0-0.4); EOS % 2.1 % (1.0-4.0); HEMATOCRIT 45.4 % (42.0-52.0); HEMOGLOBIN 15.3 g/dl (14.0-18.0); LYMPH # 3.6 10*3/uL (1.3-4.4); LYMPH % 28.9 % (27.0-41.0); MEAN CELL VOLUME 81.7 fl (80.0-94.0); MEAN CORPUSCULAR HGB 27.5 pg (27.0-31.0); MEAN CORPUSCULAR HGB CONC 33.7 g/dl (33.0-37.0); MEAN PLATELET VOLUME 9.3 fl (9.6-12.3); MONO # 1.1 10*3/uL (0.1-1.0); MONO % 8.4 % (3.0-9.0); NEUT # 7.5 10*3/uL (2.3-7.9); NEUT % 59.7 % (47.0-73.0); PLATELET COUNT AUTOMATED 317 10*3/uL (130-400); RED BLOOD COUNT 5.56 10*6/uL (4.50-5.90); RED CELL DISTRI WIDTH 12.9 % (0-14.5); WHITE BLOOD COUNT 12.6 10*3/uL (4.8-10.8)
[2017-06-15 12:09] LABS: ACT PARTIAL THROMBO TIME 22.6 SECONDS (20.8-31.5); INTERNATIONAL NORM RATIO 0.9 (2.0-3.5)
[2017-06-15 12:15] LABS: ALBUMIN 3.8 gm/dl (3.1-4.5); ALKALINE PHOSPHATASE 110 U/L (45-117); BUN 8 mg/dl (7-24); CHLORIDE 107 mmol/L (98-107); CREATININE 1.55 mg/dL (0.70-1.30); POTASSIUM 3.8 mmol/L (3.5-5.1); SGOT/AST 19 IU/L (3-35); SGPT/ALT 38 U/L (12-78); SODIUM 141 mmol/L (136-145); TOTAL PROTEIN 7.2 gm/dL (6.4-8.2)
[2017-06-15 12:24] LABS: TROPONIN I < 0.015 ng/ml (<0.045)
[2017-06-15 12:48] VITALS: BP 142/83
== END 2017-06-15 13:59 | disposition home or self-care (01) ==
LOC: ED 11:30
PROVIDERS: Emergency Medicine
DX: J40 Bronchitis, not specified as acute or chronic (principal); N17.9 Acute kidney failure, unspecified; F17.200 Nicotine dependence, unspecified, uncomplicated; F12.10 Cannabis abuse, uncomplicated; Z79.899 Other long term (current) drug therapy; Z88.1 Allergy status to other antibiotic agents

== ENCOUNTER 2017-07-31 05:09 | Emergency (ER) | payer MEDICARE ==
[~2017-07-31] VITALS: Ht 172.7 cm; Wt 86.2 kg
[2017-07-31 05:13] VITALS: BP 156/97
[2017-07-31] MEDS ORDERED: PREDNISONE20 M1 PO (06:00)
[2017-07-31] MEDS ORDERED: Motrin,Rufen800 MG PO (06:00)
[2017-07-31] MEDS ORDERED: PROAIR HFA8.5 GM INH (06:00)
[2017-07-31] MEDS ORDERED: ZITHROMAX250 MG PO (06:00)
== END 2017-07-31 06:11 | disposition home or self-care (01) ==
LOC: ED 05:09
DX: J20.9 Acute bronchitis, unspecified (principal); F12.10 Cannabis abuse, uncomplicated; F17.210 Nicotine dependence, cigarettes, uncomplicated; Z88.1 Allergy status to other antibiotic agents; Z79.899 Other long term (current) drug therapy

== ENCOUNTER 2017-09-18 15:16 | Emergency (ER) | payer MEDICARE ==
[~2017-09-18] VITALS: Ht 172.7 cm; Wt 90.7 kg
[~2017-09-18 15:16] MED LIST changes: +PROAIR HFA8.5 GM INH; +ZITHROMAX250 MG PO
[2017-09-18 15:20] VITALS: BP 143/85
[2017-09-18 16:03] LABS: BASO # 0.1 10*3/uL (0.0-0.1); BASO % 0.6 % (0.0-1.0); EOS # 0.3 10*3/uL (0.0-0.4); EOS % 2.8 % (1.0-4.0); HEMATOCRIT 45.5 % (42.0-52.0); HEMOGLOBIN 15.3 g/dl (14.0-18.0); LYMPH # 4.2 10*3/uL (1.3-4.4); LYMPH % 36.1 % (27.0-41.0); MEAN CORPUSCULAR HGB 27.6 pg (27.0-31.0); MEAN CORPUSCULAR HGB CONC 33.6 g/dl (33.0-37.0); MEAN PLATELET VOLUME 9.7 fl (9.6-12.3); MONO # 0.8 10*3/uL (0.1-1.0); MONO % 7.1 % (3.0-9.0); NEUT # 6.2 10*3/uL (2.3-7.9); NEUT % 53.1 % (47.0-73.0); PLATELET COUNT AUTOMATED 313 10*3/uL (130-400); RED BLOOD COUNT 5.55 10*6/uL (4.50-5.90); RED CELL DISTRI WIDTH 12.8 % (0-14.5); WHITE BLOOD COUNT 11.7 10*3/uL (4.8-10.8)
[2017-09-18 16:20] LABS: ALKALINE PHOSPHATASE 102 U/L (45-117); BUN 8 mg/dl (7-24); CHLORIDE 106 mmol/L (98-107); CREATININE 1.21 mg/dL (0.70-1.30); LIPASE 111 U/L (73-393); POTASSIUM 3.4 mmol/L (3.5-5.1); SGOT/AST 21 IU/L (3-35); SGPT/ALT 44 U/L (12-78); SODIUM 141 mmol/L (136-145); TOTAL PROTEIN 7.2 gm/dL (6.4-8.2)
[2017-09-18 16:26] LABS: BILIRUBIN NEGATIVE (NEGATIVE); BLOOD NEGATIVE (NEGATIVE); CLARITY CLEAR (CLEAR); COLOR YELLOW (YELLOW); GLUCOSE NEGATIVE (NEGATIVE); KETONE NEGATIVE (NEGATIVE); LEUKO ESTERASE NEGATIVE (NEGATIVE); NITRITE NEGATIVE (NEGATIVE); PH 5.5 (5.0-9.0); SPECIFIC GRAVITY <= 1.005 (1.005-1.030); UROBILINOGEN 0.2 E.U./dl (0.2-1.0)
[2017-09-18 16:36] LABS: WBC 0-2 wbc/hpf (0-5)
[2017-09-18] MEDS ORDERED: ZOFRAN ODT4 MG SL (17:13)
== END 2017-09-18 17:30 | disposition home or self-care (01) ==
LOC: ED 15:16
PROVIDERS: Nurse Practitioner Family
DX: K29.70 Gastritis, unspecified, without bleeding (principal); F17.200 Nicotine dependence, unspecified, uncomplicated; Z79.899 Other long term (current) drug therapy; Z88.1 Allergy status to other antibiotic agents

== ENCOUNTER 2017-12-11 18:38 | Emergency (ER) | payer MEDICARE ==
[~2017-12-11] VITALS: Ht 172.7 cm; Wt 72.6 kg
[2017-12-11 18:40] VITALS: BP 131/96
== END 2017-12-11 20:07 | disposition home or self-care (01) ==
LOC: ED 18:38
DX: S20.211A Contusion of right front wall of thorax, initial encounter (principal); F17.200 Nicotine dependence, unspecified, uncomplicated; Z88.1 Allergy status to other antibiotic agents; W22.8XXA Striking against or struck by other objects, initial encounter; Y93.89 Activity, other specified; Y92.89 Other specified places as the place of occurrence of the external cause; Y99.8 Other external cause status

== ENCOUNTER 2017-12-22 22:47 | Emergency (ER) | payer MEDICARE ==
[~2017-12-22] VITALS: Ht 172.7 cm; Wt 83.9 kg
[2017-12-22 22:47] VITALS: BP 145/76
[2017-12-22] MEDS ORDERED: ANTIBIOTIC28.4 GM T (23:33)
[2017-12-22] MEDS ORDERED: SEPTDS PO (23:33)
== END 2017-12-22 23:47 | disposition home or self-care (01) ==
LOC: ED 22:47
DX: S91.115A Laceration without foreign body of left lesser toe(s) without damage to nail, initial encounter (principal); F17.200 Nicotine dependence, unspecified, uncomplicated; F12.10 Cannabis abuse, uncomplicated; Z88.1 Allergy status to other antibiotic agents; W25.XXXA Contact with sharp glass, initial encounter; Y93.89 Activity, other specified; Y92.89 Other specified places as the place of occurrence of the external cause; Y99.9 Unspecified external cause status

== ENCOUNTER → 2018-05-19 | Outpatient (CLI) | payer MEDICARE ==
[~2018-05-19] MED LIST changes: +ANTIBIOTIC28.4 GM T; +SEPTDS PO; +VISTARIL50 MG PO
== END | disposition home or self-care (01) ==
LOC: RESCLI 04:00
DX: K21.9 Gastro-esophageal reflux disease without esophagitis (principal); R21 Rash and other nonspecific skin eruption; G47.33 Obstructive sleep apnea (adult) (pediatric); F17.210 Nicotine dependence, cigarettes, uncomplicated; E55.9 Vitamin D deficiency, unspecified; R53.82 Chronic fatigue, unspecified; I10 Essential (primary) hypertension; F60.3 Borderline personality disorder; K58.0 Irritable bowel syndrome with diarrhea; F31.9 Bipolar disorder, unspecified; F98.8 Other specified behavioral and emotional disorders with onset usually occurring in childhood and adolescence; M17.12 Unilateral primary osteoarthritis, left knee; L40.9 Psoriasis, unspecified; Z79.899 Other long term (current) drug therapy; Z71.6 Tobacco abuse counseling; Z88.0 Allergy status to penicillin

== ENCOUNTER → 2018-08-23 | Outpatient (CLI) | payer MEDICARE ==
[~2018-08-23] MED LIST changes: +POLYTRIM 1000010 M1 OPH; +TYLENOL325 M1 PO; +ZYRTEC10 MG PO
== END | disposition home or self-care (01) ==
LOC: RESCLI 01:49
DX: I10 Essential (primary) hypertension (principal); J06.9 Acute upper respiratory infection, unspecified; R00.0 Tachycardia, unspecified; F17.200 Nicotine dependence, unspecified, uncomplicated; J45.909 Unspecified asthma, uncomplicated; Z71.6 Tobacco abuse counseling; Z88.0 Allergy status to penicillin

== ENCOUNTER 2018-11-02 14:08 | Emergency (ER) | payer MEDICARE ==
[~2018-11-02] VITALS: Ht 172.7 cm; Wt 77.1 kg
[~2018-11-02 14:08] MED LIST changes: -POLYTRIM 1000010 M1 OPH; -TYLENOL325 M1 PO; -ZYRTEC10 MG PO
[2018-11-02 14:10] VITALS: BP 140/82
[2018-11-02] MEDS ORDERED: ZITHROMAX250 MG PO (14:21)
[2018-11-02] MEDS ORDERED: ZYRTEC10 MG PO (14:21)
== END 2018-11-02 14:28 | disposition home or self-care (01) ==
LOC: ED 14:08
DX: H66.91 Otitis media, unspecified, right ear (principal); F17.200 Nicotine dependence, unspecified, uncomplicated; Z88.1 Allergy status to other antibiotic agents

== ENCOUNTER 2018-12-09 07:09 | Emergency (ER) | payer MEDICARE ==
[~2018-12-09] VITALS: Ht 172.7 cm; Wt 81.6 kg
[~2018-12-09 07:09] MED LIST changes: +ZYRTEC10 MG PO
[2018-12-09 07:11] VITALS: BP 140/88
[2018-12-09] MEDS ORDERED: NAPROSYN500 MG PO (09:24)
[2018-12-09] MEDS ORDERED: TYLENOL325 M1 PO (09:24)
[2018-12-09] MEDS ORDERED: POLYTRIM 1000010 M1 OPH (09:24)
== END 2018-12-09 09:32 | disposition home or self-care (01) ==
LOC: ED 07:09
DX: H57.89 Other specified disorders of eye and adnexa (principal); H57.11 Ocular pain, right eye; F17.200 Nicotine dependence, unspecified, uncomplicated; Z88.1 Allergy status to other antibiotic agents

== ENCOUNTER 2018-12-25 15:35 | Emergency (ER) | payer MEDICARE ==
[~2018-12-25] VITALS: Ht 172.7 cm; Wt 81.6 kg
[~2018-12-25 15:35] MED LIST changes: +POLYTRIM 1000010 M1 OPH; +TYLENOL325 M1 PO
[2018-12-25 15:38] VITALS: BP 137/83
[2018-12-25 16:12] LABS: BASO # 0.1 10*3/uL (0.0-0.1); BASO % 0.4 % (0.0-1.0); EOS # 0.2 10*3/uL (0.0-0.4); EOS % 1.3 % (1.0-4.0); HEMATOCRIT 47.2 % (42.0-52.0); HEMOGLOBIN 15.8 g/dl (14.0-18.0); LYMPH # 3.5 10*3/uL (1.3-4.4); LYMPH % 25.4 % (27.0-41.0); MEAN CELL VOLUME 83.8 fl (80.0-94.0); MEAN CORPUSCULAR HGB 28.1 pg (27.0-31.0); MEAN CORPUSCULAR HGB CONC 33.5 g/dl (33.0-37.0); MEAN PLATELET VOLUME 9.8 fl (9.6-12.3); MONO # 0.9 10*3/uL (0.1-1.0); MONO % 6.5 % (3.0-9.0); NEUT # 9.1 10*3/uL (2.3-7.9); NEUT % 66.1 % (47.0-73.0); PLATELET COUNT AUTOMATED 313 10*3/uL (130-400); RED BLOOD COUNT 5.63 10*6/uL (4.50-5.90); RED CELL DISTRI WIDTH 13.1 % (0-14.5); WHITE BLOOD COUNT 13.7 10*3/uL (4.8-10.8)
[2018-12-25 16:38] LABS: BILIRUBIN 1+ (NEGATIVE); BLOOD NEGATIVE (NEGATIVE); CLARITY SL CLOUDY (CLEAR); COLOR YELLOW (YELLOW); GLUCOSE NEGATIVE (NEGATIVE); KETONE NEGATIVE (NEGATIVE); LEUKO ESTERASE NEGATIVE (NEGATIVE); NITRITE NEGATIVE (NEGATIVE); SPECIFIC GRAVITY >= 1.030 (1.005-1.030)
[2018-12-25 16:45] LABS: ALBUMIN 4.2 gm/dl (3.1-4.5); ALKALINE PHOSPHATASE 114 U/L (45-117); BUN 7 mg/dl (7-24); CHLORIDE 105 mmol/L (98-107); CREATININE 1.32 mg/dL (0.70-1.30); POTASSIUM 3.2 mmol/L (3.5-5.1); SGOT/AST 13 IU/L (3-35); SGPT/ALT 23 U/L (12-78); SODIUM 139 mmol/L (136-145); TOTAL PROTEIN 7.5 gm/dL (6.4-8.2)
[2018-12-25 16:50] LABS: MUCOUS 3+
[2018-12-25 16:54] LABS: ACETAMINOPHEN (TYLENOL) < 5.0 ug/ml (10-30); ETHYL ALCOHOL < 3.0 mg/dl (<3)
[2018-12-25 16:56] LABS: URINE AMPHETAMINES < 1000 (1000ng/ml); URINE BARBITURATES < 200 (200ng/ml); URINE BENZODIAZEPINES < 200 (200ng/ml); URINE CANNABINOIDS (THC) > 50 (50ng/ml); URINE COCAINE < 300 (300ng/ml); URINE METHADONE < 300 (300ng/ml); URINE OPIATES < 300 (300ng/ml)
[2018-12-25 16:59] LABS: URINE PHENCYCLIDINE < 25 (25ng/ml)
== END 2018-12-25 18:00 | disposition home or self-care (01) ==
LOC: ED 15:35
PROVIDERS: Nurse Practitioner Family
DX: F43.21 Adjustment disorder with depressed mood (principal); F32.9 Major depressive disorder, single episode, unspecified; F17.200 Nicotine dependence, unspecified, uncomplicated; Z88.1 Allergy status to other antibiotic agents

== ENCOUNTER 2019-02-03 13:34 | Emergency (ER) | payer MEDICARE ==
[~2019-02-03] VITALS: Ht 172.7 cm; Wt 77.1 kg
[2019-02-03 13:57] LABS: BASO % 0.4 % (0.0-1.0); EOS # 0.2 10*3/uL (0.0-0.4); EOS % 1.7 % (1.0-4.0); HEMATOCRIT 45.5 % (42.0-52.0); HEMOGLOBIN 15.4 g/dl (14.0-18.0); LYMPH # 3.4 10*3/uL (1.3-4.4); LYMPH % 32.3 % (27.0-41.0); MEAN CORPUSCULAR HGB 28.1 pg (27.0-31.0); MEAN CORPUSCULAR HGB CONC 33.8 g/dl (33.0-37.0); MEAN PLATELET VOLUME 9.7 fl (9.6-12.3); MONO # 0.8 10*3/uL (0.1-1.0); MONO % 7.6 % (3.0-9.0); NEUT # 6.1 10*3/uL (2.3-7.9); NEUT % 57.6 % (47.0-73.0); PLATELET COUNT AUTOMATED 327 10*3/uL (130-400); RED BLOOD COUNT 5.48 10*6/uL (4.50-5.90); RED CELL DISTRI WIDTH 12.8 % (0-14.5); WHITE BLOOD COUNT 10.6 10*3/uL (4.8-10.8)
[2019-02-03 14:12] LABS: ACT PARTIAL THROMBO TIME 24.3 SECONDS (20.0-32.1); INTERNATIONAL NORM RATIO 0.9 (2.0-3.5)
[2019-02-03 14:20] LABS: ALBUMIN 3.8 gm/dl (3.1-4.5); ALKALINE PHOSPHATASE 102 U/L (45-117); BUN 9 mg/dl (7-24); CHLORIDE 108 mmol/L (98-107); CREATININE 1.07 mg/dL (0.70-1.30); POTASSIUM 3.6 mmol/L (3.5-5.1); SGOT/AST 13 IU/L (3-35); SGPT/ALT 24 U/L (12-78); SODIUM 140 mmol/L (136-145); TOTAL PROTEIN 6.8 gm/dL (6.4-8.2)
[2019-02-03 14:29] LABS: TROPONIN I < 0.015 ng/ml (<0.045)
[2019-02-03 15:13] VITALS: BP 104/62
[2019-02-03] MEDS ORDERED: NAPROSYN500 MG PO (15:35)
[2019-02-03] MEDS ORDERED: MEDROL DOSEPAK4 MG PO (15:35)
== END 2019-02-03 15:40 | disposition home or self-care (01) ==
LOC: ED 13:34
PROVIDERS: Internal Medicine
DX: R09.1 Pleurisy (principal); R07.9 Chest pain, unspecified; R05 Cough; J02.9 Acute pharyngitis, unspecified; F17.200 Nicotine dependence, unspecified, uncomplicated; Z88.1 Allergy status to other antibiotic agents

== ENCOUNTER 2019-07-15 11:49 | Emergency (ER) | payer MEDICARE ==
[~2019-07-15] VITALS: Ht 172.7 cm; Wt 81.6 kg
[2019-07-15 11:52] VITALS: BP 119/76
[2019-07-15] MEDS ORDERED: AVPAK AZITHROM250 MG PO (12:07)
== END 2019-07-15 12:08 | disposition home or self-care (01) ==
LOC: ED 11:49
DX: J01.90 Acute sinusitis, unspecified (principal); B96.89 Other specified bacterial agents as the cause of diseases classified elsewhere; H92.03 Otalgia, bilateral; M54.2 Cervicalgia; K21.9 Gastro-esophageal reflux disease without esophagitis; I10 Essential (primary) hypertension; J45.909 Unspecified asthma, uncomplicated; G43.909 Migraine, unspecified, not intractable, without status migrainosus; Z88.1 Allergy status to other antibiotic agents; Z79.899 Other long term (current) drug therapy; Z87.891 Personal history of nicotine dependence

== ENCOUNTER 2021-04-13 13:24 | Emergency (ER) | payer MEDICARE ==
[~2021-04-13] VITALS: Ht 172.7 cm; Wt 90.7 kg
[~2021-04-13 13:24] MED LIST changes: +AVPAK AZITHROM250 MG PO
[2021-04-13 14:21] LABS: BASO # 0.1 10*3/uL (0.0-0.1); BASO % 0.5 % (0.0-1.0); EOS # 0.3 10*3/uL (0.0-0.4); EOS % 2.8 % (1.0-4.0); HEMATOCRIT 45.7 % (42.0-52.0); LYMPH # 4.2 10*3/uL (1.3-4.4); MEAN CELL VOLUME 81.6 fl (80.0-94.0); MEAN CORPUSCULAR HGB 27.5 pg (27.0-31.0); MEAN CORPUSCULAR HGB CONC 33.7 g/dl (33.0-37.0); MEAN PLATELET VOLUME 9.7 fl (9.6-12.3); MONO # 0.8 10*3/uL (0.1-1.0); MONO % 7.1 % (3.0-9.0); NEUT # 6.2 10*3/uL (2.3-7.9); NEUT % 53.3 % (47.0-73.0); PLATELET COUNT AUTOMATED 310 10*3/uL (130-400); WHITE BLOOD COUNT 11.5 10*3/uL (4.8-10.8)
[2021-04-13 14:37] LABS: ALBUMIN 3.7 gm/dl (3.1-4.5); ALKALINE PHOSPHATASE 99 U/L (45-117); BUN 8 mg/dl (7-24); CHLORIDE 109 mmol/L (98-107); CREATININE 1.04 mg/dL (0.70-1.30); LIPASE 55 U/L (73-393); POTASSIUM 3.9 mmol/L (3.5-5.1); SGOT/AST 22 IU/L (3-35); SGPT/ALT 57 U/L (12-78); SODIUM 140 mmol/L (136-145); TOTAL PROTEIN 7.2 gm/dL (6.4-8.2)
[2021-04-13 18:17] VITALS: BP 120/60
[2021-04-13] MEDS ORDERED: ZOFRAN4 MG PO (18:29)
== END 2021-04-13 18:31 | disposition home or self-care (01) ==
LOC: ED 13:24
PROVIDERS: Physician Assistant
DX: B34.9 Viral infection, unspecified (principal); Z20.822 Contact with and (suspected) exposure to COVID-19; Z88.1 Allergy status to other antibiotic agents; F17.200 Nicotine dependence, unspecified, uncomplicated

== ENCOUNTER 2021-05-07 11:36 | Emergency (ER) | payer MEDICARE ==
[2021-05-07 12:13] VITALS: BP 139/81
[2021-05-07] MEDS ORDERED: VIBRAMYCIN100 MG PO (12:22)
[2021-05-07] MEDS ORDERED: PREDNISONE50 MG PO (12:22)
== END 2021-05-07 12:39 | disposition home or self-care (01) ==
LOC: ED 11:36
DX: J01.90 Acute sinusitis, unspecified (principal); Z20.822 Contact with and (suspected) exposure to COVID-19; H60.501 Unspecified acute noninfective otitis externa, right ear; Z88.1 Allergy status to other antibiotic agents

== ENCOUNTER 2021-08-16 19:33 | Emergency (ER) | payer MEDICARE ==
[~2021-08-16] VITALS: Ht 172.7 cm; Wt 90.7 kg
[~2021-08-16 19:33] MED LIST changes: +PREDNISONE50 MG PO
[2021-08-16 19:40] VITALS: BP 150/90
== END 2021-08-16 21:58 | disposition home or self-care (01) ==
LOC: ED 19:33
DX: S39.012A Strain of muscle, fascia and tendon of lower back, initial encounter (principal); M51.26 Other intervertebral disc displacement, lumbar region; Z88.1 Allergy status to other antibiotic agents; F17.200 Nicotine dependence, unspecified, uncomplicated; X58.XXXA Exposure to other specified factors, initial encounter; Y93.89 Activity, other specified; Y92.89 Other specified places as the place of occurrence of the external cause; Y99.8 Other external cause status

== ENCOUNTER 2021-09-25 08:04 | Emergency (ER) | payer MEDICARE ==
[~2021-09-25] VITALS: Wt 90.7 kg
[2021-09-25 08:08] VITALS: BP 139/80
== END 2021-09-25 09:55 | disposition home or self-care (01) ==
LOC: ED 08:04
DX: S60.011A Contusion of right thumb without damage to nail, initial encounter (principal); F17.200 Nicotine dependence, unspecified, uncomplicated; Z88.1 Allergy status to other antibiotic agents; W22.8XXA Striking against or struck by other objects, initial encounter; Y93.89 Activity, other specified; Y92.89 Other specified places as the place of occurrence of the external cause; Y99.8 Other external cause status

== ENCOUNTER 2021-12-18 20:15 | Emergency (ER) | payer MEDICARE ==
[2021-12-18 20:22] VITALS: BP 139/82
[2021-12-18] MEDS ORDERED: ZITHROMAX200 MG/51 PO (21:45)
== END 2021-12-18 22:00 | disposition home or self-care (01) ==
LOC: ED 20:15
DX: H65.93 Unspecified nonsuppurative otitis media, bilateral (principal); Z20.822 Contact with and (suspected) exposure to COVID-19; R05.9 Cough, unspecified; J02.9 Acute pharyngitis, unspecified; F17.200 Nicotine dependence, unspecified, uncomplicated; Z88.1 Allergy status to other antibiotic agents; Z96.22 Myringotomy tube(s) status

== ENCOUNTER 2022-03-04 10:36 | Emergency (ER) | payer MEDICARE ==
[~2022-03-04] VITALS: Ht 172.7 cm; Wt 90.7 kg
[~2022-03-04 10:36] MED LIST changes: +ZITHROMAX200 MG/51 PO
[2022-03-04 11:50] VITALS: BP 145/67
[2022-03-04 12:03] LABS: BASO % 0.4 % (0.0-1.0); EOS # 0.1 10*3/uL (0.0-0.4); HEMATOCRIT 45.7 % (42.0-52.0); LYMPH # 0.8 10*3/uL (1.3-4.4); LYMPH % 9.7 % (27.0-41.0); MEAN CELL VOLUME 83.9 fl (80.0-94.0); MEAN CORPUSCULAR HGB 27.9 pg (27.0-31.0); MEAN CORPUSCULAR HGB CONC 33.3 g/dl (33.0-37.0); MEAN PLATELET VOLUME 9.5 fl (9.6-12.3); MONO # 0.7 10*3/uL (0.1-1.0); MONO % 8.3 % (3.0-9.0); NEUT # 6.7 10*3/uL (2.3-7.9); NEUT % 80.1 % (47.0-73.0); PLATELET COUNT AUTOMATED 272 10*3/uL (130-400); RED BLOOD COUNT 5.45 10*6/uL (4.50-5.90); RED CELL DISTRI WIDTH 12.9 % (0-14.5); WHITE BLOOD COUNT 8.3 10*3/uL (4.8-10.8)
[2022-03-04 12:14] LABS: ACT PARTIAL THROMBO TIME 26.3 SECONDS (20.0-32.1)
[2022-03-04 12:25] LABS: ALKALINE PHOSPHATASE 108 U/L (45-117); BUN 7 mg/dl (7-24); CHLORIDE 109 mmol/L (98-107); CREATININE 1.12 mg/dL (0.70-1.30); LIPASE 72 U/L (73-393); POTASSIUM 3.9 mmol/L (3.5-5.1); SGOT/AST 17 IU/L (3-35); SGPT/ALT 35 U/L (12-78); SODIUM 139 mmol/L (136-145); TOTAL PROTEIN 7.1 gm/dL (6.4-8.2)
== END 2022-03-04 13:31 | disposition home or self-care (01) ==
LOC: ED 10:36
PROVIDERS: Emergency Medicine
DX: U07.1 COVID-19 (principal); F17.200 Nicotine dependence, unspecified, uncomplicated; Z88.1 Allergy status to other antibiotic agents

== ENCOUNTER 2022-06-18 15:45 | Emergency (ER) | payer MEDICARE ==
[~2022-06-18] VITALS: Ht 172.7 cm; Wt 90.7 kg
[2022-06-18 15:52] VITALS: BP 147/89
== END 2022-06-18 17:44 | disposition home or self-care (01) ==
LOC: ED 15:45
DX: M79.631 Pain in right forearm (principal); Z88.1 Allergy status to other antibiotic agents; Z98.890 Other specified postprocedural states; Z87.891 Personal history of nicotine dependence

== ENCOUNTER 2022-08-22 20:05 | Emergency (ER) | payer MEDICARE ==
[~2022-08-22] VITALS: Ht 172.7 cm; Wt 90.7 kg
[2022-08-22 20:25] VITALS: BP 140/70
== END 2022-08-22 22:19 | disposition home or self-care (01) ==
LOC: ED 20:05
DX: M79.601 Pain in right arm (principal); I10 Essential (primary) hypertension; J45.909 Unspecified asthma, uncomplicated; F41.9 Anxiety disorder, unspecified; G43.909 Migraine, unspecified, not intractable, without status migrainosus; Z88.1 Allergy status to other antibiotic agents; Z98.890 Other specified postprocedural states; Z87.891 Personal history of nicotine dependence; K21.9 Gastro-esophageal reflux disease without esophagitis

== ENCOUNTER 2023-07-15 15:10 | Emergency (ER) | payer MEDICARE ==
[~2023-07-15] VITALS: Ht 172.7 cm; Wt 90.7 kg
[2023-07-15 15:18] VITALS: BP 133/88
[2023-07-15] MEDS ORDERED: VIBRAMYCIN100 MG PO (16:42)
== END 2023-07-15 17:37 | disposition home or self-care (01) ==
LOC: ED 15:10
DX: S02.5XXA Fracture of tooth (traumatic), initial encounter for closed fracture (principal); S91.101A Unspecified open wound of right great toe without damage to nail, initial encounter; K21.9 Gastro-esophageal reflux disease without esophagitis; I10 Essential (primary) hypertension; J45.909 Unspecified asthma, uncomplicated; F41.9 Anxiety disorder, unspecified; G43.909 Migraine, unspecified, not intractable, without status migrainosus; Z88.1 Allergy status to other antibiotic agents; Z98.890 Other specified postprocedural states; F12.90 Cannabis use, unspecified, uncomplicated; F17.200 Nicotine dependence, unspecified, uncomplicated; W22.8XXA Striking against or struck by other objects, initial encounter; Y93.89 Activity, other specified; Y92.89 Other specified places as the place of occurrence of the external cause; Y99.8 Other external cause status

== ENCOUNTER 2023-09-11 20:28 | Emergency (ER) | payer MEDICARE ==
[~2023-09-11] VITALS: Ht 172.7 cm; Wt 90.7 kg
[2023-09-11] MEDS ORDERED: SODIUM CHLORIDE 0.9% 1,000 ML IV ONE (21:30)
[2023-09-11] MEDS ORDERED: Ondansetron Hydrochloride 4 MG/2 ML VIAL IV ONE (21:30)
[2023-09-11] MEDS ORDERED: FAMOTIDINE 50 ML IV ONE (21:30)
[2023-09-11 21:48] LABS: BASO # 0.1 10*3/uL (0.0-0.1); BASO % 0.4 % (0.0-1.0); EOS # 0.3 10*3/uL (0.0-0.4); EOS % 1.7 % (1.0-4.0); LYMPH # 1.9 10*3/uL (1.3-4.4); LYMPH % 10.9 % (27.0-41.0); MEAN CELL VOLUME 81.8 fl (80.0-94.0); MEAN CORPUSCULAR HGB 27.1 pg (27.0-31.0); MEAN CORPUSCULAR HGB CONC 33.1 g/dl (33.0-37.0); MEAN PLATELET VOLUME 9.3 fl (9.6-12.3); MONO # 0.6 10*3/uL (0.1-1.0); MONO % 3.7 % (3.0-9.0); NEUT # 14.1 10*3/uL (2.3-7.9); NEUT % 82.9 % (47.0-73.0); PLATELET COUNT AUTOMATED 368 10*3/uL (130-400); RED BLOOD COUNT 6.72 10*6/uL (4.50-5.90); RED CELL DISTRI WIDTH 12.8 % (0-14.5)
[2023-09-11 22:09] LABS: ALKALINE PHOSPHATASE 124 U/L (46-116); BUN 9 mg/dl (9-23); CHLORIDE 107 mmol/L (98-107); POTASSIUM 4.3 mmol/L (3.4-5.1); SGPT/ALT 53 U/L (5-49); TOTAL PROTEIN 8.5 gm/dL (6.0-8.0)
[2023-09-12 00:10] LABS: BILIRUBIN Negative (Negative); BLOOD Negative (Negative); CLARITY Clear (Clear); COLOR Yellow (Yellow); GLUCOSE Negative (Negative); KETONE Trace (Negative); LEUKO ESTERASE Negative (Negative); NITRITE Negative (Negative); PH 5.5 (4.5-8.0); SPECIFIC GRAVITY >= 1.030 (1.001-1.030)
[2023-09-12 00:20] LABS: HYALINE CAST 0-2; MUCOUS 2+; RBC 0-2 rbc/hpf (0-2); WBC 0-2 wbc/hpf (0-5)
[2023-09-12] MEDS ORDERED: IOHEXOL 300 MG/ML 100 ML VIAL IV ONE (01:35)
[2023-09-12 01:50] VITALS: BP 137/76
== END 2023-09-12 05:38 | disposition home or self-care (01) ==
LOC: ED 20:28
PROVIDERS: Emergency Medicine
DX: K52.9 Noninfective gastroenteritis and colitis, unspecified (principal); Z20.822 Contact with and (suspected) exposure to COVID-19; R11.2 Nausea with vomiting, unspecified; J45.909 Unspecified asthma, uncomplicated; I10 Essential (primary) hypertension; R73.9 Hyperglycemia, unspecified; K21.9 Gastro-esophageal reflux disease without esophagitis; E78.5 Hyperlipidemia, unspecified; G43.909 Migraine, unspecified, not intractable, without status migrainosus; F41.9 Anxiety disorder, unspecified; Z88.1 Allergy status to other antibiotic agents; Z86.73 Personal history of transient ischemic attack (TIA), and cerebral infarction without residual deficits; F12.10 Cannabis abuse, uncomplicated; Z98.890 Other specified postprocedural states; F17.200 Nicotine dependence, unspecified, uncomplicated

== ENCOUNTER 2024-03-16 21:59 | Inpatient (IN) | payer MEDICARE ==
[~2024-03-16] VITALS: Ht 172.7 cm; Wt 90.7 kg
[~2024-03-16 21:59] MED LIST changes: +ASPIRIN CHEWABL81 MG PO; +ATORVASTATIN CA40 M1 PO; +LISINOPRIL10 M1 PO
[2024-03-16 22:00] VITALS: BP 130/90
[2024-03-16] MEDS ORDERED: methylPREDNISolone sod succ 125 MG VIAL IM ONE (22:30)
[2024-03-16] MEDS ORDERED: Albuterol Sulf/Ipratropium 3 ML VIAL NEB ONE (22:30)
[2024-03-16 22:39] LABS: BASO # 0.1 10*3/uL (0.0-0.1); BASO % 0.5 % (0.0-1.0); EOS # 0.4 10*3/uL (0.0-0.4); EOS % 2.6 % (1.0-4.0); HEMATOCRIT 45.6 % (42.0-52.0); LYMPH # 2.5 10*3/uL (1.3-4.4); LYMPH % 16.9 % (27.0-41.0); MEAN CELL VOLUME 84.1 fl (80.0-94.0); MEAN CORPUSCULAR HGB 27.3 pg (27.0-31.0); MEAN CORPUSCULAR HGB CONC 32.5 g/dl (33.0-37.0); MEAN PLATELET VOLUME 9.2 fl (9.6-12.3); MONO # 1.1 10*3/uL (0.1-1.0); MONO % 7.4 % (3.0-9.0); NEUT # 10.8 10*3/uL (2.3-7.9); NEUT % 72.2 % (47.0-73.0); PLATELET COUNT AUTOMATED 284 10*3/uL (130-400); RED BLOOD COUNT 5.42 10*6/uL (4.50-5.90); RED CELL DISTRI WIDTH 12.9 % (0-14.5); WHITE BLOOD COUNT 14.9 10*3/uL (4.8-10.8)
[2024-03-16 22:58] LABS: BUN 6 mg/dl (9-23); CHLORIDE 103 mmol/L (98-107); POTASSIUM 3.8 mmol/L (3.4-5.1)
[2024-03-16] MEDS ORDERED: SODIUM CHLORIDE 0.9% 1,000 ML IV SCH (23:00)
[2024-03-16] MEDS ORDERED: AZITHROMYCIN 250 MG TAB PO ONE (23:45)
[2024-03-16] MEDS ORDERED: Ceftriaxone Sodium 1 GM/10 ML SYR IV ONE (23:45)
[2024-03-17 01:10] VITALS: BP 130/66
[2024-03-17] MEDS ORDERED: BISACODYL 5 MG TAB PO PRN (01:30)
[2024-03-17] MEDS ORDERED: ACETAMINOPHEN 650 MG SUPP R PRN (01:30)
[2024-03-17] MEDS ORDERED: Magnesium Hydroxide 30 ML UDC PO PRN (01:30)
[2024-03-17] MEDS ORDERED: ACETAMINOPHEN 325 MG TAB PO PRN (01:30)
[2024-03-17] MEDS ORDERED: BISACODYL 10 MG SUPP R PRN (01:30)
[2024-03-17] MEDS ORDERED: Albuterol Sulf/Ipratropium 3 ML VIAL NEB PRN (01:35)
[2024-03-17 06:56] VITALS: BP 115/55
[2024-03-17 08:41] VITALS: BP 115/55
[2024-03-17] MEDS ORDERED: GUAIFENESIN 600 MG TAB ER PO SCH (10:00)
[2024-03-17] MEDS ORDERED: Enoxaparin Sodium 40 MG/0.4 ML SYR SC SCH (10:00)
[2024-03-17] MEDS ORDERED: methylPREDNISolone sod succ 40 MG VIAL IV SCH (10:25)
[2024-03-17 18:50] VITALS: BP 147/80
[2024-03-17] MEDS ORDERED: GUAIFENESIN 10 ML UDC PO SCH (22:00)
[2024-03-18] MEDS ORDERED: Ceftriaxone Sodium 10 ML IV SCH
[2024-03-18] MEDS ORDERED: AZITHROMYCIN 250 MG TAB PO SCH (10:00)
== END 2024-03-17 19:09 | disposition left against medical advice (07) | DRG 871 ==
LOC: ED 21:59 → EDHOLD 03-17 00:44
PROVIDERS: Internal Medicine; ADMIT Student in an Organized Health Care Education/Training Program; ATTEND Student in an Organized Health Care Education/Training Program
DX: A41.9 Sepsis, unspecified organism (principal); J15.9 Unspecified bacterial pneumonia; J96.01 Acute respiratory failure with hypoxia; R65.20 Severe sepsis without septic shock; F17.210 Nicotine dependence, cigarettes, uncomplicated; I10 Essential (primary) hypertension; E78.5 Hyperlipidemia, unspecified; G47.30 Sleep apnea, unspecified; F41.1 Generalized anxiety disorder; G43.909 Migraine, unspecified, not intractable, without status migrainosus; K21.9 Gastro-esophageal reflux disease without esophagitis; Z71.6 Tobacco abuse counseling; Z86.73 Personal history of transient ischemic attack (TIA), and cerebral infarction without residual deficits; Z88.8 Allergy status to other drugs, medicaments and biological substances; Z79.82 Long term (current) use of aspirin; Z79.899 Other long term (current) drug therapy; Z83.3 Family history of diabetes mellitus; Z82.49 Family history of ischemic heart disease and other diseases of the circulatory system; Z82.3 Family history of stroke

== ENCOUNTER 2024-08-15 18:13 | Emergency (ER) | payer MEDICARE, MEDICAID ==
[~2024-08-15] VITALS: Wt 90.7 kg
[2024-08-15 18:28] VITALS: BP 150/85
[2024-08-15] MEDS ORDERED: PREDNISONE20 M1 PO (19:49)
[2024-08-15] MEDS ORDERED: methylPREDNISolone sod succ 125 MG VIAL IM ONE (19:55)
== END 2024-08-15 20:30 | disposition home or self-care (01) ==
LOC: ED 18:13
DX: L25.9 Unspecified contact dermatitis, unspecified cause (principal); S60.221A Contusion of right hand, initial encounter; I10 Essential (primary) hypertension; K21.9 Gastro-esophageal reflux disease without esophagitis; G43.909 Migraine, unspecified, not intractable, without status migrainosus; J45.909 Unspecified asthma, uncomplicated; F41.9 Anxiety disorder, unspecified; Z79.82 Long term (current) use of aspirin; Z79.899 Other long term (current) drug therapy; Z88.1 Allergy status to other antibiotic agents; X58.XXXA Exposure to other specified factors, initial encounter; Y93.89 Activity, other specified; Y92.89 Other specified places as the place of occurrence of the external cause; Y99.8 Other external cause status

== ENCOUNTER 2024-09-03 09:36 | Emergency (ER) | payer MEDICARE, MEDICAID ==
[~2024-09-03] VITALS: Ht 172.7 cm; Wt 97.5 kg
[2024-09-03 10:01] VITALS: BP 141/89
[2024-09-03] MEDS ORDERED: ROSUVASTATIN CA10 MG PO (10:01)
[2024-09-03] MEDS ORDERED: ASPIRIN ADULT L81 M2 PO (10:02)
[2024-09-03 11:04] LABS: BASO # 0.1 10*3/uL (0.0-0.1); BASO % 0.5 % (0.0-1.0); EOS # 0.3 10*3/uL (0.0-0.4); HEMATOCRIT 45.8 % (42.0-52.0); MEAN CORPUSCULAR HGB 27.4 pg (27.0-31.0); MEAN PLATELET VOLUME 9.6 fl (9.6-12.3); MONO # 1.1 10*3/uL (0.1-1.0); MONO % 8.5 % (3.0-9.0); NEUT # 7.4 10*3/uL (2.3-7.9); NEUT % 60.2 % (47.0-73.0); PLATELET COUNT AUTOMATED 291 10*3/uL (130-400); RED BLOOD COUNT 5.52 10*6/uL (4.50-5.90); RED CELL DISTRI WIDTH 12.8 % (0-14.5); WHITE BLOOD COUNT 12.3 10*3/uL (4.8-10.8)
[2024-09-03 11:16] LABS: ACT PARTIAL THROMBO TIME 25.7 SECONDS (20.0-32.1)
[2024-09-03] MEDS ORDERED: Ondansetron Hydrochloride 4 MG/2 ML VIAL IV ONE (11:25)
[2024-09-03] MEDS ORDERED: MORPHINE Sulfate 2 MG/ML SYR IV ONE (11:25)
[2024-09-03 11:29] LABS: ALKALINE PHOSPHATASE 108 U/L (46-116); BUN 11 mg/dl (9-23); CHLORIDE 105 mmol/L (98-107); LIPASE 25 U/L (12-53); POTASSIUM 3.9 mmol/L (3.4-5.1); SGPT/ALT 50 U/L (5-49); TOTAL PROTEIN 7.3 gm/dL (6.0-8.0)
[2024-09-03 11:34] LABS: BILIRUBIN Negative (Negative); BLOOD Negative (Negative); CLARITY Clear (Clear); COLOR Dark Yellow (Yellow); GLUCOSE Negative (Negative); KETONE Trace (Negative); LEUKO ESTERASE Negative (Negative); NITRITE Negative (Negative); PH 6.5 (4.5-8.0); SPECIFIC GRAVITY >= 1.030 (1.001-1.030)
[2024-09-03 11:57] LABS: RBC 0-2 rbc/hpf (0-2); WBC 0-2 wbc/hpf (0-5)
== END 2024-09-03 12:33 | disposition home or self-care (01) ==
LOC: ED 09:36
PROVIDERS: Internal Medicine
DX: R10.84 Generalized abdominal pain (principal); R11.2 Nausea with vomiting, unspecified; F17.210 Nicotine dependence, cigarettes, uncomplicated; Z88.1 Allergy status to other antibiotic agents; Z79.899 Other long term (current) drug therapy; Z79.82 Long term (current) use of aspirin; Z96.22 Myringotomy tube(s) status

== ENCOUNTER 2024-11-25 16:48 | Emergency (ER) | payer MEDICARE, MEDICAID ==
[~2024-11-25] VITALS: Ht 172.7 cm; Wt 95.3 kg
[~2024-11-25 16:48] MED LIST changes: +ROSUVASTATIN CA10 MG PO
[2024-11-25 16:57] VITALS: BP 133/91
[2024-11-25] MEDS ORDERED: EPINEPHrine/Lidocaine Hydroc 20 ML VIAL SC ONE (17:10)
[2024-11-25] MEDS ORDERED: Tdap Vaccine 0.5 ML SYR (Adult Vaccine) IM ONE (17:10)
== END 2024-11-25 19:06 | disposition home or self-care (01) ==
LOC: ED 16:48
DX: S61.210A Laceration without foreign body of right index finger without damage to nail, initial encounter (principal); Z88.1 Allergy status to other antibiotic agents; Z79.899 Other long term (current) drug therapy; Z79.82 Long term (current) use of aspirin; Z87.891 Personal history of nicotine dependence; W26.8XXA Contact with other sharp object(s), not elsewhere classified, initial encounter; Y93.89 Activity, other specified; Y92.89 Other specified places as the place of occurrence of the external cause; Y99.8 Other external cause status

== ENCOUNTER 2025-01-08 13:47 | Emergency (ER) | payer MEDICARE, MEDICAID ==
[~2025-01-08] VITALS: Ht 172.7 cm; Wt 90.7 kg
[2025-01-08 13:53] VITALS: BP 147/82
[2025-01-08] MEDS ORDERED: Albuterol Sulf/Ipratropium 3 ML VIAL NEB ONE (14:05)
[2025-01-08] MEDS ORDERED: VIBRAMYCIN100 MG PO (14:58)
[2025-01-08] MEDS ORDERED: DOXYCYCLIN25 MG/5 ML PO (15:09)
== END 2025-01-08 15:18 | disposition home or self-care (01) ==
LOC: ED 13:47
DX: J18.9 Pneumonia, unspecified organism (principal); K21.9 Gastro-esophageal reflux disease without esophagitis; I10 Essential (primary) hypertension; J45.909 Unspecified asthma, uncomplicated; G43.909 Migraine, unspecified, not intractable, without status migrainosus; F41.9 Anxiety disorder, unspecified; E78.5 Hyperlipidemia, unspecified; F17.210 Nicotine dependence, cigarettes, uncomplicated; Z86.73 Personal history of transient ischemic attack (TIA), and cerebral infarction without residual deficits; Z88.1 Allergy status to other antibiotic agents; Z79.899 Other long term (current) drug therapy; Z79.82 Long term (current) use of aspirin

== ENCOUNTER 2025-05-19 18:14 | Emergency (ER) | payer MEDICARE ==
[~2025-05-19] VITALS: Ht 172.7 cm; Wt 544.3 kg
[~2025-05-19 18:14] MED LIST changes: +DOXYCYCLIN25 MG/5 ML PO
[2025-05-19 18:44] VITALS: BP 143/96
[2025-05-19] MEDS ORDERED: predniSONE 20 MG TAB PO ONE (20:45)
== END 2025-05-19 21:02 | disposition home or self-care (01) ==
LOC: ED 18:14
DX: S46.912A Strain of unspecified muscle, fascia and tendon at shoulder and upper arm level, left arm, initial encounter (principal); K21.9 Gastro-esophageal reflux disease without esophagitis; I10 Essential (primary) hypertension; J45.909 Unspecified asthma, uncomplicated; F41.9 Anxiety disorder, unspecified; G43.909 Migraine, unspecified, not intractable, without status migrainosus; G47.30 Sleep apnea, unspecified; F12.90 Cannabis use, unspecified, uncomplicated; F17.210 Nicotine dependence, cigarettes, uncomplicated; Z86.73 Personal history of transient ischemic attack (TIA), and cerebral infarction without residual deficits; Z88.1 Allergy status to other antibiotic agents; W17.81XA Fall down embankment (hill), initial encounter; Y93.89 Activity, other specified; Y92.89 Other specified places as the place of occurrence of the external cause; Y99.8 Other external cause status